=== PATIENT | male | born 1990 ===

== ENCOUNTER 2018-04-21 08:58 | Day surgery (SDC) | payer OTHER, SELFPAY ==
[2018-04-21] VITALS (10 sets, daily range): BP systolic 96–124; BP diastolic 49–74; PULSE 59–79; RESP 15–16; TEMP 36.3–37.3; O2SAT 99–100; BMI 21.8
--- NOTE | 2018-04-21 | DI.RAD.S_ITS ---
PROCEDURE: FL GUIDED LUMBAR PUNCTURE LP INDICATIONS: polyneuropathy TECHNIQUE: The indications, alternatives, benefits, risks, and complications were explained to the patient. Written informed consent was obtained and placed in the chart. The patient was placed in a prone position on the fluoroscopy table, and a level was chosen for percutaneous access under fluoroscopic guidance. The site was prepped and draped in a sterile fashion. After local anaesthetic, a spinal needle was then used to enter the intrathecal space, with return of cerebrospinal fluid. After obtaining sufficient fluid, the needle was then withdrawn, and a bandage applied to the puncture site. FINDINGS: Puncture level: Right interlaminar notch L3-4 Needle: Spinal needle. Opening pressure: Not requested. CSF volume and description: 2 cc aliquots, 4 samples. Medications: 1% lidocaine for anaesthesia. Complications: None. Laboratories: As ordered by referring clinician. IMPRESSION: Successful fluoroscopically guided lumbar puncture. Dictated by: Roderick Bowens M.D. on 04/21/2018 at 12:01 Approved by: Roderick Bowens M.D. on 04/21/2018 at 12:02
--- NOTE | 2018-04-21 10:52 | PC.NURSE ---
remain alert and awake,
--- NOTE | 2018-04-21 10:59 | PC.NURSE ---
successful, noted clear spinal fluids, tolerating procedure
--- NOTE | 2018-04-21 11:50 | SUR.PHASEII ---
1150 - lab had just been into draw labs from pt.
[2018-04-21 11:59] LABS: Appearance CSF Clear (Clear); CSF Tube Number 3; CSF Tube Volume 1.0 mL; Color CSF Colorless (Colorless); Glucose CSF 49 mg/dL (40-70); Red Blood Cell CSF 0 RBC /uL; Total Protein CSF 57 mg/dL (12-60); White Blood Cell CSF 0 MONO/uL (0-5)
--- NOTE | 2018-04-23 14:08 | PM.CN ---
History of Present Illness Chief complaint: POLYNEUROPATHY [id number] [facility] Medical History Healthy adult (Acute) Surgical History No pertinent past surgical history (Acute) Social History household members: spouse Meds Home Medications Medication Instructions Recorded Confirmed Type Excedrin Extra Strength 04/23/18 History Allergies Allergy/AdvReac Type Severity Reaction Status Date / Time No Known Drug Allergies Allergy Verified 04/21/18 09:15 Review of Systems Review of Systems All systems reviewed & are unremarkable except as noted in HPI and below Constitutional Constitutional: Reports system reviewed and no additional complaints, except as documented ENT Ears, Nose, Mouth, and Throat: Yes system reviewed; no additional complaints, except as documented Neurologic Neurologic: Reports as per HPI (Headache that radiates from posterior neck/shoulder up back of head to temporal region, worse with sitting or standing. ) Comments: Patient c/o positional headache that began within 30 minutes of lumbar puncture done 2 days ago for workup of polyneuropathy. He denies fever/chills, visual or auditory disturbances, nausea or vomiting. Exam Vital Signs (past 8 hours): Oxygen Delivery Method Room Air Assessment & Plan Plan: Assessment/Plan Narrative: 27 yo male from [facility] with onset of headache following lumbar puncture done 2 days ago. LP performed as part of a workup for polyneuropathy. The patient is not experiencing any other constitutional symptoms such as nausea, vomiting, auditory or visual disturbances. He denies fever or chills. He has been taking Excedrin ES without relief. Headache is positional in nature and most likely is a post dural puncture headache. Options were discussed including no treatment and allowing the headache to run its course as well as performing an epidural blood patch. Benefits and risks were discuassed in full, including risk of infection, worsening of his symptoms, allergic reaction. No guarantees made although it is likely that the procedure will improve his symptoms. Questions were answered and the patient consented for an epidural blood patch. See procedure note.
--- NOTE | 2018-04-23 14:11 | P.CONS_ITS ---
History of Present Illness Chief complaint: POLYNEUROPATHY [address] [facility] Medical History Healthy adult (Acute) Surgical History No pertinent past surgical history (Acute) Social History household members: spouse Meds Home Medications Medication Instructions Recorded Confirmed Type Excedrin Extra Strength 04/23/18 History Allergies Allergy/AdvReac Type Severity Reaction Status Date / Time No Known Drug Allergies Allergy Verified 04/21/18 09:15 Review of Systems Review of Systems All systems reviewed & are unremarkable except as noted in HPI and below Constitutional Constitutional: Reports system reviewed and no additional complaints, except as documented ENT Ears, Nose, Mouth, and Throat: Yes system reviewed; no additional complaints, except as documented Neurologic Neurologic: Reports as per HPI (Headache that radiates from posterior neck/ shoulder up back of head to temporal region, worse with sitting or standing. ) Comments: Patient c/o positional headache that began within 30 minutes of lumbar puncture done 2 days ago for workup of polyneuropathy. He denies fever/ chills, visual or auditory disturbances, nausea or vomiting. Exam Vital Signs (past 8 hours): Oxygen Delivery Method Room Air Assessment & Plan Plan: Assessment/Plan Narrative: 27 yo male from [facility] with onset of headache following lumbar puncture done 2 days ago. LP performed as part of a workup for polyneuropathy. The patient is not experiencing any other constitutional symptoms such as nausea, vomiting, auditory or visual disturbances. He denies fever or chills. He has been taking Excedrin ES without relief. Headache is positional in nature and most likely is a post dural puncture headache. Options were discussed including no treatment and allowing the headache to run its course as well as performing an epidural blood patch. Benefits and risks were discuassed in full, including risk of infection, worsening of his symptoms , allergic reaction. No guarantees made although it is likely that the procedure will improve his symptoms. Questions were answered and the patient consented for an epidural blood patch. See procedure note.
--- NOTE | 2018-04-23 14:33 | PM.PROC.1 ---
Procedures Date/Time Date of procedure: 04/23/18 Time of procedure: 14:00 General Procedure description: Epidural Blood Patch Procedure performed in sterile fashion with gloves and mask. After obtaining consent for the procedure, the patient was placed in left lateral decubitus position. The back was exposed and prepped with chloroprep and allowed to dry for 3 minutes. Sterile drape placed and landmarks identified. 1% Lidocaine wheal placed at midline L3-4 using 27g. The epidural space was identified at a depth of ~5cm (18g 360imaging epidural needle) using the loss of resistance technique with normal saline. No CSF was obtained and there were no paresthesias. A tourniquet was place on the extended upper left arm and the left arm was prepped with chloroprep. 20 ml of blood was aspirated using an 18g needle. The full 20 ml of blood was then slowly injected into the epidural space. The patient felt pressure in his lower back during the final 5 ml injection. The patient was then placed supine and allowed to rest for 20 minutes. The head of bed was then slowly raised. Complications: other (The patient tolerated the procedure well without any evidence of complications. After a 30 minute period following the procedure, when the head of bed was slowly raised, the patient states that there was, unfortunately, little improvement in his headache symptoms. )
--- NOTE | 2018-04-23 15:11 | PM.PN.1 ---
Exam Vital Signs (past 8 hours): Oxygen Delivery Method Room Air Assessment & Plan Plan: Assessment/Plan Narrative: No improvement of post dural spinal headache symptoms following epidural blood patch. I did not offer a second blood patch at this time. I discussed using narcotics to treat his pain. I encouraged his that spinal headaches do improve with time. He will be provided a prescription for pain medication and work release paperwork from the ED.
== END 2018-04-21 13:05 ==
PROVIDERS: Visit Provider Family Medicine
PROC: 009U3ZZ Drainage of Spinal Canal, Percutaneous Approach (ICD-10-PCS; principal; 2018-04-21 10:30)
DX: G97.1 Other reaction to spinal and lumbar puncture (principal); G62.9 Polyneuropathy, unspecified
CPT/HCPCS: 62273; 36415; 62270; 76000; 82040; 82042; 82784; 82945; 84157; 87070; 87205; 89051

== ENCOUNTER 2018-04-23 11:33 | Emergency (ER) | payer OTHER, SELFPAY ==
--- NOTE | 2018-04-23 11:38 | ED_ITS ---
HPI - General Adult General Chief complaint: Headache Stated complaint: lumbar punture, surgery this week, pain in neck Time Seen by Provider: 04/23/18 11:34 Source: patient Mode of arrival: ambulatory Limitations: no limitations History of Present Illness HPI narrative: Patient is a 27-year-old male who 2 days ago underwent a lumbar puncture performed by Radiology. This was ordered by Neurology for evaluation of neurologic symptoms that he was having. According to the note that was reviewed the lumbar procedure was unremarkable. The patient states that approximately 30 min after he had the procedure done he started having a headache. He states that has continued since then. Worse with sitting up. Much improved but not resolved with lying down. No fevers. He states that the pain is in the back of his head neck and goes down to his shoulders. No vomiting. Has been drinking fluids since the procedure. Related Data Home Medications Medication Instructions Recorded Confirmed Excedrin Extra Strength 04/23/18 Previous Rx's Medication Instructions Recorded efruizwsop-dgreytvzdygwf-kiam 1 cap PO Q4H PRN #14 cap 04/23/18 [Fioricet] hydrocodone-acetaminophen [[place]] 1 tab PO Q4-6H PRN #15 tab 04/23/18 ondansetron 4 mg PO Q6-8H PRN #14 tab 04/23/18 Allergies Allergy/AdvReac Type Severity Reaction Status Date / Time No Known Drug Allergies Allergy Verified 04/21/18 09:15 Review of Systems Constitutional Denies fever(s), Reports headache(s) and Denies weakness Eyes Denies change in vision and Denies diplopia ENT Ears, Nose, Mouth, and Throat: Denies vertigo, Denies dizziness, Reports headache(s) and Reports neck pain Cardiovascular Denies chest pain, Denies syncope and Denies dyspnea Respiratory Denies dyspnea Gastrointestinal Gastrointestinal: Denies nausea and Denies vomiting Musculoskeletal Reports back pain and Reports neck pain Integumentary/Breasts Denies rash Neurologic Denies vertigo, Denies dizziness, Denies syncope, Reports headache(s), Denies radicular pain and Denies weakness Hematologic/Lymphatic Denies easy bleeding and Denies easy bruising PFSH Social History household members: spouse Exam Initial Vital Signs Initial Vital Signs: Vital Signs Temperature 97.8 F 04/23/18 11:44 Pulse Rate 55 L 04/23/18 11:44 Respiratory Rate 14 04/23/18 11:44 Blood Pressure 117/62 04/23/18 11:44 Pulse Oximetry 100 04/23/18 11:44 Const General: cooperative, healthy appearing, comfortable, well developed, well groomed and acute distress Orientation: alert, awake and oriented x3 HENMT Head: normal to inspection and normocephalic Resp Effort & Inspection: normal respiratory effort Auscultation: clear to auscultation bilaterally Cardio Rate: regular rate Rhythm: regular rhythm Skin Lesions: no lesions Rashes: no rashes Neuro General: alert, awake and oriented x3 Cranial Nerves: CN's II-XI intact bilaterally Cognition: normal cognition Speech: speech normal Extrem General: normal to inspection and capillary refill normal Psych Appearance: grossly normal and well kempt Course Orders Ordered: ED Orders 04/23/18 12:05 Complete Blood Count AUTO DIFF Stat Discontinued Medications Hydrocodone Bitart/Acetaminophen ([place] 5/325) 1 tab PO NOW ONE Stop: 04/23/18 14:47 Last Admin: 04/23/18 15:03 Dose: 1 tab Vital Signs - 8 hr 04/23/18 11:44 04/23/18 13:00 04/23/18 14:00 Temperature 97.8 F Pulse Rate 55 L 60 67 Respiratory Rate 14 Blood Pressure 117/62 Blood Pressure [Right Arm] 113/60 115/65 Pulse Oximetry 100 100 97 04/23/18 15:00 04/23/18 15:48 Temperature Pulse Rate 48 L 66 Respiratory Rate Blood Pressure Blood Pressure [Right Arm] 104/71 Pulse Oximetry 100 Medical Decision Making Lab Data Lab results reviewed: Yes I reviewed the patient's lab results. Result diagrams: 04/23/18 12:05 Lab Results 04/23/18 Range/Units 12:05 WBC 4.1 L (4.5-11.0) X10^3/uL RBC 4.33 L (4.5-5.9) X10^6/uL Hgb 13.4 L (13.5-17.5) g/dL Hct 39.6 L (41-53) % MCV 91.4 (80-100) fL MCH 30.9 (26-34) PG MCHC 33.8 (30-36) % RDW 13.2 (11.6-14.8) % Plt Count 208 (150-400) X10^3/uL Neut % (Auto) 48.4 L (50-75) % Lymph % (Auto) 45.1 H (25-40) % Schuyler % (Auto) 4.5 (3-14) % Eos % (Auto) 1.5 L (2-4) % Baso % (Auto) 0.5 (0-2) % Neut # (Auto) 2000 (1278-3532) /uL Lymph # (Auto) 1900 (8781-5817) /uL Schuyler # (Auto) 200 (0-900) /uL Eos # (Auto) 100 (0-450) /uL Baso # (Auto) 0 (0-100) /uL MDM Narrative Medical decision making narrative: Patient's history and physical today is very consistent with a post lumbar puncture headache. I consulted Anesthesia came to the emergency department and performed a blood patch. Afterwards patient reported only minimal if any improvement in his headache. It is better when he lays down and worse when he is sitting up. Has no signs of meningitis. No focal neurologic exam. I do not feel that imaging of his head is necessary. After discussion with Anesthesia decision was made not to perform another procedure. Will treat the patient's symptoms for now. Will send home with prescriptions for this. He was given return precautions. He expressed understanding and agreement with plan. Discharge Plan Departure Patient Disposition: Home Clinical Impression: Headache following lumbar puncture Discharge Date/Time: 04/23/18 15:49 Interventions: ED Discharge Assessment Last Done: 04/23/18 15:48 Instructions: DI for Post-Spinal Puncture Headache Activity Restrictions/Additional Instructions: Recommend that you take all of the medications as needed. Increase your fluid intake. You can take some caffeine which may help some your symptoms. Contact your medical department on Wednesday for follow-up. Return to the emergency department for any new symptoms, fevers, problems with urinating or bowel movements or lower extremity weakness. Prescriptions: New hydrocodone-acetaminophen [[place]] 5-325 mg tablet 1 tab PO Q4-6H PRN (Reason: pain) Qty: 15 RF: 0 ondansetron 4 mg tablet,disintegrating 4 mg PO Q6-8H PRN (Reason: nausea and vomiting) Qty: 14 RF: 0 uqykcowmph-mrgmtatpyzvzs-vuvg [Fioricet] 50-300-40 mg capsule 1 cap PO Q4H PRN (Reason: pain) Qty: 14 RF: 0 No Action Excedrin Extra Strength RF: 0 Stand Alone Forms: Work Release Note
[2018-04-23 11:44] VITALS: BP 117/62; PULSE 55; RESP 14; TEMP 36.6; O2SAT 100
[2018-04-23 12:14] LABS: Add Manual Diff / Slide Review NO; Basophils Absolute Auto 0 /uL (0-100); Basophils Percent Auto 0.5 % (0-2); Eosinophils Absolute Auto 100 /uL (0-450); Eosinophils Percent Auto 1.5 % (2-4); Hematocrit 39.6 % (41-53); Hemoglobin 13.4 g/dL (13.5-17.5); Lymphocytes Absolute Auto 1900 /uL (1100-4500); Lymphocytes Percent Auto 45.1 % (25-40); Mean Corpuscular HGB Conc 33.8 % (30-36); Mean Corpuscular Hemoglobin 30.9 PG (26-34); Mean Corpuscular Volume 91.4 fL (80-100); Monocytes Absolute Auto 200 /uL (0-900); Monocytes Percent Auto 4.5 % (3-14); Neutrophils Absolute Auto 2000 /uL (1500-7000); Neutrophils Percent Auto 48.4 % (50-75); Platelet Count 208 X10^3/uL (150-400); Red Blood Cell Count 4.33 X10^6/uL (4.5-5.9); Red Cell Distribution Width 13.2 % (11.6-14.8); White Blood Cell Count 4.1 X10^3/uL (4.5-11.0)
[2018-04-23 13:00] VITALS: BP 113/60; PULSE 60; O2SAT 100
[2018-04-23 14:00] VITALS: BP 115/65; PULSE 67; O2SAT 97
[2018-04-23 15:00] VITALS: BP 104/71; PULSE 48; O2SAT 100
[2018-04-23] MEDS: HYDROCODONE/ACET 5/325 TABLET 1 TAB PO (15:03)
--- NOTE | 2018-04-23 15:15 | PC.NURSE ---
Increased in headach with HOB elevated to 45 degrees. Provider aware. Told to leave patient at this level at this time
[2018-04-23 15:48] VITALS: PULSE 66
== END 2018-04-23 15:49 | disposition home or self-care (01) ==
PROVIDERS: Emergency Provider Emergency Medicine
DX: G97.1 Other reaction to spinal and lumbar puncture (principal)
CPT/HCPCS: 36591; 85025; 99283